=== PATIENT | male | born 1995 | race Caucasian/White ===

== ENCOUNTER 2022-04-05 16:39 | Emergency (ER) | payer OTHER, SELFPAY ==
[2022-04-05 16:39] VITALS: BP 128/78; PULSE 67; RESP 16; TEMP 36.6; O2SAT 98; BMI 21.6
--- NOTE | 2022-04-05 17:45 | US_ITS ---
STUDY: ABDOMINAL ULTRASOUND - RIGHT UPPER QUADRANT REASON FOR VISIT: Male, 26 years old. ABDOMEN PAIN PAIN-abd TECHNIQUE: Ultrasound evaluation of the right upper quadrant was performed with real-time and static maynard-scale imaging. TECHNICAL QUALITY: Adequate. COMPARISON: None FINDINGS: Liver: There is normal echogenicity of the liver. The bile ducts are within normal limits. There is hepatic color flow. The direction of portal flow is hepatopetal. There is no demonstrated mass lesion. Gallbladder: Normal distended gallbladder. The gallbladder wall measures 1.9 mm. There is a negative sonographic Miranda''s sign. There is no pericholecystic fluid. There is biliary sludge dependent within the gallbladder vs small gallstones. Common Bile Duct (C.B.D.): The common bile duct measures ( in mm): 4.9 Pancreas: Normal size of the head, body of the pancreas. There is normal echogenicity of the pancreas. There is no demonstrated pancreatic mass or cyst. Right Kidney: Normal size of the right kidney. The right kidney measures 11.2 cm. . Normal renal cortex. There is no demonstrated renal mass or cyst. There is no right hydronephrosis. Aorta: It is not visualized. There is too much overlying bowel gas. . US/Gallbladder IMPRESSION: There is biliary sludge dependent within the gallbladder vs small gallstones. Note: Renal size measurements and size measurements of other organs etc may vary depending on modality and hot head machine operator dependent variations in measurements. (i.e. Measuring a kidney on an US does not correlate with an exact same measurement on a CT.) Electronically Signed: Ariel Read MD at 18:40 EST ,
--- NOTE | 2022-04-05 17:46 | ED.VIS.GI ---
HPI HPI - GI History of Present Illness Chief Complaint: Abd Pain Informant: patient Narrative Narrative: Presents for evaluation pain in upper abdomen starting yesterday around noon. He states pain on the right side at night and moves around. No appetite this morning, he tried eating little bit lunch and symptoms worsen. No fevers. No nausea or vomiting. No diarrhea. Normal bowel movement daily. No urinary symptoms. No abdominal surgery history. No history of similar. Prior similar symptoms: No PFSH PFSH Home Medications NK 04/05/22 [History Last Taken Unknown] Allergy/AdvReac Type Severity Reaction Status Date / Time No Known Allergies Allergy Verified 04/05/22 16:41 Social History Smoking Status: Never smoker ROS ROS ED Constitutional Constitutional ED: Denies chills, fever(s) or sweats Eyes Eyes: Denies change in vision ENT ENT ED: Denies dysphagia or sore throat Cardiovascular Cardiovascular: Denies chest pain, leg edema, palpitations or racing heartbeat Respiratory/Chest Respiratory/Chest: Denies cough, dyspnea or dyspnea on exertion Gastrointestinal Gastrointestinal: Reports abdominal pain; Denies diarrhea, nausea or vomiting Genitourinary Genitourinary ED: Denies dysuria, hematuria or urinary frequency Musculoskeletal Musculoskeletal: Denies back pain, extremity pain or neck pain Integumentary Denies rash or wounds Neurologic Neurologic: Denies headache(s), paresthesias or weakness EXAM Physical Exam Const Vital Signs: 04/05/22 16:39 04/05/22 19:48 Temperature 97.8 F Temperature Source Temporal Pulse Rate 67 65 Respiratory Rate 16 16 Blood Pressure 128/78 H Blood Pressure Mean 94 Pulse Ox 98 98 Oxygen Delivery Method Room Air Positive well nourished and well developed General Appearance ED: well developed and NAD HEENT Reports moist mucous membranes normocephalic and atraumatic Eyes PERRL, EOMs intact bilaterally and conjunctivae normal General Eye ED: Yes normal appearance of both eyes Neck no lymphadenopathy and supple General: Negative for tenderness Chest Wall Chest: Negative for tenderness Resp normal respiratory effort and normal air movement Effort and Inspection: symmetric chest movement; Negative for respiratory distress Cardio regular rate, regular rhythm and no murmurs Peripheral Pulses: pulses 2+ throughout GI normal to inspection, nondistended, normoactive bowel sounds GI Narrative: Gastric and right upper quadrant tenderness. Negative Miranda's. Negative Rovsing's. Palpation: Negative for guarding or rebound tenderness present Back/Spine no CVA tenderness and no thoracic nor lumbar tenderness Extremity normal to inspection General Extremety ED: Negative for edema or tenderness General Extremity: Negative for edema Neuro oriented x3 and no sensory deficits noted Sensorium / Orientation: awake and alert Skin no rashes or lesions noted and no wounds MDM MDM MDM Narrative Medical decision making narrative: Interventions / MDM: Differential diagnosis: Gastritis, cholecystitis, cholelithiasis, pancreatitis, Diagnosis considered but do not suspect: Retrocecal appendicitis however no tenderness in this area currently. Walking My EKG interpretation: N/A Imaging independently reviewed and interpreted by myself: N/A External documents reviewed: N/A Test considered but not ordered:N/A ED course: Patient epigastric right upper quadrant pain. Abdominal lab sudden normal bladder ultrasound sludge versus small gallstones. There is no signs of cholecystitis he declined any medications he is feeling better on reevaluation. Discussed avoiding's specific foods in diet but she dairies fatty foods and greasy foods. He is given follow-up with surgery as an outpatient. Return precaution discussed. All questions were answered. Of note he did report recent slaughtering of a steer for which she is cooked a lot more greasy foods here recently. Reports drinking milk products daily. Re-evaluation: stable Disposition discussed with patient/family/significant other: Patient and significant other Case discussed with consulting clinician: N/A History & Record Review Discussion w/independent historian: Patient Lab Data Attestation: I reviewed the patient's lab results. Labs: Laboratory Results - last 24 hr 04/05/22 04/05/22 18:07 18:07 WBC 5.5 RBC 4.89 Hgb 14.0 Hct 43.0 MCV 87.9 MCH 28.6 MCHC 32.6 RDW Std Deviation 40.5 RDW Coeff of Coy 12.6 Plt Count 228 MPV 10.0 Immature Gran % (Auto) 0.200 Neut % (Auto) 54.0 Lymph % (Auto) 34.2 [place] % (Auto) 9.3 Eos % (Auto) 1.6 Baso % (Auto) 0.7 Absolute Neuts (auto) 3.0 Absolute Lymphs (auto) 1.88 Nucleated RBC % 0 Sodium 142 Potassium 3.9 Chloride 107 Carbon Dioxide 29.0 Anion Gap 6 BUN 17 Creatinine 0.87 Estim Creat Clear Calc 120.94 Est GFR (MDRD) Af Amer 137 Est GFR (MDRD) Non-Af 113 BUN/Creatinine Ratio 19.6 Glucose 96 Calcium 9.7 Total Bilirubin 0.70 Direct Bilirubin 0.17 AST 35 ALT 56 Alkaline Phosphatase 86 Total Protein 7.2 Albumin 4.1 Globulin 3.1 Lipase 86 Radiography Diagnostic Testing: Clinical Impression(s) from Imaging Studies Gallbladder Ultrasound 04/05/22 17:45 IMPRESSION: There is biliary sludge dependent within the gallbladder vs small gallstones. Note: Renal size measurements and size measurements of other organs etc may vary depending on modality and pasting machine operator dependent variations in measurements. (i.e. Measuring a kidney on an US does not correlate with an exact same measurement on a CT.) Electronically Signed: Ariel Read MD at 18:40 EST Reading Location ID and State: [facility] / [place] , Service support , Discharge Plan Triage Chief Complaint: Abd Pain ED Provider: Benitez Márquez Dx/Rx/DC Orders Clinical Impression: Biliary colic, Abdominal pain Instructions: ED Gallstones with Biliary Colic Prescriptions: No Action NK Primary Care Provider: Care Physician,No Primary Referrals: Elkin Cortes MD [Med Staff - Active Staff] - 1-2 Weeks NOT,DEFINED [Non-Staff] - Activity Restrictions/Additional Instructions: Ultrasound with sludge versus tiny gallstones. Labs are all stable. Avoid certain diet products as discussed which includes fatty foods greasy foods or dairy products. Follow-up with Dr. Cortes. Return if worsening symptoms. Disposition Disposition: Home, Self Care Discharge Date/Time: 04/05/22 19:48
[2022-04-05] MEDS: 0.9% Normal Saline 1,000 ML 1000 ML IV (18:04)
[2022-04-05 18:22] LABS: Absolute Lymphocyte Count 1.88 X10^3/uL (0.83-4.51); Basophil# 0.04 X10^3/uL; Basophil% 0.7 % (0-1); Eosinophil# 0.09 X10^3/uL; Eosinophils% 1.6 % (0-5); Lymphocyte # 1.88 X10^3/ul (0.83-4.51); Lymphocyte % 34.2 % (19-41); Mean Corp Hgb Conc 32.6 g/dL (32-36); Mean Corpuscular Hgb 28.6 pg (27.0-32.0); Mean Corpuscular Volume 87.9 fL (80-94); Monocyte# 0.51 X10^3/uL; Monocyte% 9.3 % (0-10); NRBC Flagged by Analyzer 0 % (0-5); Neutrophil # 2.96 X10^3/uL (2.7-7.7); Platelet Count 228 K/mm3 (150-450); RBC Distribution Width CV 12.6 % (11.6-14.6); RBC Distribution Width SD 40.5 fl (35.1-43.9); Red Blood Count 4.89 M/mm3 (4.6-6.2); White Blood Count 5.5 K/mm3 (4.4-11.0)
[2022-04-05 18:34] LABS: AST(SGOT) 35 U/L (15-37); Alanine Aminotransfer ALT/SGPT 56 U/L (16-61); Albumin, Serum 4.1 g/dL (3.2-5.0); Alkaline Phosphatase 86 U/L (45-117); Anion Gap 6 (5-15); BUN 17 mg/dL (7-18); BUN/Creat Ratio 19.6 RATIO (10-20); Bilirubin, Direct 0.17 mg/dL (0.00-0.30); Calcium,Total 9.7 mg/dL (8.5-10.1); Chloride 107 mmol/L (98-107); Creatinine, Serum 0.87 mg/dL (0.70-1.30); EST Glomerular Filtration Rate 113 mL/min (>60); Est Glom Filt Rate - Afr Amer 137 mL/min (>60); Estimated Creatinine Clearance 120.94 ml/min; Globulin 3.1 g/dL (2.2-4.2); Glucose 96 mg/dL (74-106); Lipase 86 U/L (73-393); Potassium 3.9 mmol/L (3.5-5.1); Protein, Total 7.2 g/dL (6.4-8.2); Sodium Level 142 mmol/L (136-145)
[2022-04-05 19:48] VITALS: PULSE 65; RESP 16; O2SAT 98
== END 2022-04-05 19:48 | disposition home or self-care (01) ==
PROVIDERS: Emergency Provider Emergency Medicine; Visit Provider Emergency Medicine
DX: K80.50 Calculus of bile duct without cholangitis or cholecystitis without obstruction (principal)
CPT/HCPCS: 76705; 80048; 80076; 83690; 85025; 96360; 96361; 99283; J7030; A4216